=== PATIENT | female | born 1985 | race Caucasian/White ===

== ENCOUNTER → 2018-07-13 | Outpatient (REF) | LOC: ZLAB.WCH 18:17 | DX: Z01.89 Encounter for other specified special examinations (principal) ==

== ENCOUNTER 2019-02-12 13:26 | Emergency (ER) | payer SELFPAY ==
[~2019-02-12] VITALS: Ht 162.6 cm; Wt 81.8 kg
[~2019-02-12 13:26] MED LIST: PRENATAL1 TA1 PO; ZYRTEC 10MG10 MG PO
[2019-02-12 13:36] VITALS: BP 141/82; TEMP 98
[2019-02-12] MEDS ORDERED: CELEXA10 MG PO (13:53)
[2019-02-12] MEDS ORDERED: ULTRAM 50MG TAB50 MG PO (13:54)
[2019-02-12] MEDS ORDERED: PRIL40 PO (13:55)
[2019-02-12] MEDS ORDERED: MULTI VITAMINS1 TAB PO (13:56)
[2019-02-12] MEDS ORDERED: ZOFRAN ODT4 MG PO (13:56)
[2019-02-12] MEDS ORDERED: FLONASEALLERGY NS (13:57)
[2019-02-12 14:31] LABS: COLLECTION METHOD CLEAN CATCH
[2019-02-12 14:34] LABS: BASO # 0.1 (0.0-0.2); BASO % 0.5 % (0.0-2.0); EOS # 0.2 (0.0-0.7); EOS % 1.9 % (0-4.0); GRAN % 78.2 % (42.2-75.2); HEMATOCRIT 42.1 % (37.0-47.0); LYMPH # 0.9 (1.2-3.4); LYMPH % 9.2 % (20.0-51.0); MEAN CELL VOLUME 90 fl (80.0-100.0); MEAN CORPUSCULAR HEMOGLOBIN 30 pg (27.0-31.0); MEAN CORPUSCULAR HGB CONC 33 g/dl (33.0-37.0); MEAN PLATELET VOLUME 10.1 fl (7.4-10.4); MONO % 9.9 % (1.7-9.3); PLATELET COUNT 233 K/mm3 (130-400); RED BLOOD COUNT 4.68 M/mm3 (4.10-5.30); REDCELL DISTRIBUTION WIDTH-CV 12.7 % (11.5-14.5)
[2019-02-12 14:45] LABS: MUCOUS Present /lpf; PH 5 (5-8); URINE APPEARANCE Hazy; URINE BACTERIA None Seen /hpf; URINE BILIRUBIN Negative (NEGATIVE); URINE BLOOD 1+ (NEGATIVE); URINE COLOR Yellow; URINE GLUCOSE Negative (NEGATIVE); URINE KETONE Negative (NEGATIVE); URINE LEUKOCYTE ESTERASE Negative (NEGATIVE); URINE NITRATE Negative (NEGATIVE); URINE PROTEIN(semi-quant) Negative (NEGATIVE); URINE UROBILINOGEN Negative (NEGATIVE)
[2019-02-12 14:48] LABS: ALBUMIN 4.3 gm/dL (3.5-5.0); BILIRUBIN,TOTAL 0.3 mg/dL (0.0-1.0); C-REACTIVE PROTEIN 0.8 mg/dL (0.0-0.9); CALCIUM 9.5 mg/dL (8.4-10.2); CREATININE, serum 0.7 (0.52-1.25); POTASSIUM 3.9 mmol/L (3.4-5.0); TOTAL PROTEIN 7.1 gm/dL (6.4-8.2)
[2019-02-12] MEDS ORDERED: PHENERGAN 25 TA25 MG PO (15:43)
[2019-02-12 15:55] VITALS: PULSE 70
== END 2019-02-12 15:56 | disposition home or self-care (01) ==
LOC: COL.ER 13:26
PROVIDERS: Physician Assistant
DX: G43.909 Migraine, unspecified, not intractable, without status migrainosus (principal); K80.20 Calculus of gallbladder without cholecystitis without obstruction; F41.9 Anxiety disorder, unspecified; R10.11 Right upper quadrant pain; F12.90 Cannabis use, unspecified, uncomplicated; J45.909 Unspecified asthma, uncomplicated; Z87.891 Personal history of nicotine dependence; Z79.51 Long term (current) use of inhaled steroids
CPT/HCPCS: J1200; J1885; J2765; J7030

== ENCOUNTER → 2019-02-14 | Outpatient (REF) ==
[~2019-02-14] MED LIST changes: +CELEXA10 MG PO; +FLONASEALLERGY NS; +MULTI VITAMINS1 TAB PO; +PHENERGAN 25 TA25 MG PO; +PRIL40 PO; +ULTRAM 50MG TAB50 MG PO; +ZOFRAN ODT4 MG PO
[2019-02-14 18:06] LABS: C-REACTIVE PROTEIN 0.6 mg/dL (0.0-0.9)
[2019-02-14 18:32] LABS: THYROID STIMULATING HORMONE 0.911 uIU/mL (0.465-4.680)
== END ==
LOC: ZLAB.WCH 17:38
PROVIDERS: Family Medicine
DX: Z01.89 Encounter for other specified special examinations (principal)